=== PATIENT | female | born 1960 | race Caucasian/White ===

== ENCOUNTER 2016-12-02 10:25 | Emergency (ER) | payer OTHER ==
[~2016-12-02] VITALS: Ht 170.2 cm; Wt 83.9 kg
[2016-12-02 10:59] VITALS: BP 158/98
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
[2016-12-02] MEDS ORDERED: KLONOPIN0.5 M1 PO (12:28)
== END 2016-12-02 12:38 ==
LOC: ERH 10:25
DX: F43.10 Post-traumatic stress disorder, unspecified (principal); F32.9 Major depressive disorder, single episode, unspecified; F10.20 Alcohol dependence, uncomplicated

== ENCOUNTER 2017-01-23 14:49 | Emergency (ER) | payer OTHER ==
[~2017-01-23 14:49] MED LIST: KLONOPIN0.5 M1 PO
--- NOTE | 2017-01-23 14:58 | ED PSYCHIATRIC COMPLAINT ---
History of Present Illness General Chief Complaint: Psychiatric Related Complaint Stated Complaint: +SI\ Source: patient, old records Exam Limitations: poor historian Vital Signs & Intake/Output Vital Signs & Intake/Output Vital Signs Date Time Temp Pulse Resp B/P B/P Pulse O2 O2 Flow FiO2 Mean Ox Delivery Rate 01/23 1946 97.9 76 20 130/62 95 Room Air 01/23 1545 96.6 92 16 127/75 97 Room Air 01/23 1503 97 ED Intake and Output 01/24 0000 01/23 1200 Intake Total 0 Output Total Balance 0 Intake, Oral 0 Allergies Coded Allergies: No Known Drug Allergies (12/02/16) Reconcile Medications Clonazepam (Klonopin) 0.5 MG TABLET 1 TAB PO PRN PRN ANXIETY AND PTSD Triage Note: PT WENT TO SEE COUNCELOR AT TODAY AND TOLD THEM THAT SHE FELT SUICIDAL. PT BIBA FROM THERE, [facility] Triage Nurses Notes Reviewed? yes Onset: Gradual Duration: worse persistent since (weeks) Timing: recent history Severity: severe Severity Numbers: 10 Associated Symptoms: suicidal ideation HPI: Patient is a 56 out of female with history of depression and anxiety presenting to the emergency department with chief complaint of suicidal ideation has been going on for several weeks worse for the past couple days. Symptoms are currently severe. Denies any homicidal ideation. She reports that if she were to kill herself she would run out into oncoming traffic. Denies any drug use or alcohol use. Denies any nausea vomiting fevers or chills chest pain or shortness of breath. Nothing seems to make the symptoms better or worse. Denies any specific stressor but reports there is several things in her life that she stressed out about. (VERONIQUE RAMIREZ) Past History Medical History Any Pertinent Medical History? see below for history Psychiatric: alcohol dependence, anxiety, substance abuse Surgical History Surgical History: none Psychosocial History What is your primary language Georgian Family History Hx Contributory? No (VERONIQUE RAMIREZ) Review of Systems Review of Systems Constitutional: Reports: no symptoms. Comments Review of systems: See HPI, All other systems negative. Constitutional, no chills fever or weight loss HEENT: No visual changes no sore throat no congestion Cardiovascular: No chest pain ,palpitation , orthopnea or ankle swelling Skin, no jaundice no rashes Respiratory: No dyspnea cough sputum or hemoptysis GI: No nausea no vomiting : No dysuria No hematuria Muscle skeletal: no back pain, no neck pain, Neurologic: No numbness no confusion Psych: Positive stress, anxiety and depression Heme/endocrine: No bruising no bleeding no polyuria or polydipsia Immunology: No splenectomy or history of AIDS (VERONIQUE RAMIREZ) Physical Exam Physical Exam General Appearance: well developed/nourished, no apparent distress, alert, awake , comfortable Neurological/Psychiatric: oriented x 3 Comments: Well-developed well-nourished person in no acute distress HEENT: Pupils equally round and reactive to light and accommodation. Nose is atraumatic. Neck: Normal inspection Back: Nontender Cardiovascular: Regular rate and rhythms no murmurs rubs or gallops, normal JVP Respiratory: Chest nontender. No respiratory distress.breath sounds clear to auscultation bilaterally Extremity: No edema Neuro: Alert oriented x3, motor sensory normal Skin: No appreciable rash on exposed skin, skin is warm and dry. Psych: Flat affect SAD PERSONS SAD PERSONS Response Value Age <19 or >45 years? yes 1 Depression/Hopelessness? yes 2 Rational Thinking Loss? yes 2 Social Support? has support 0 Stated Future Intent? yes 2 Total 7 SAD PERSONS Done? yes (VERONIUQE RAMIREZ) Progress Differential Diagnosis: drug intoxication, drug withdrawal, hypothyroidism, major depressive disorder, bipolar, anxiety Plan of Care: Orders Procedure Date/time Status Regular Diet 01/24 L Active Continuous Observation Monitor 01/24 0820 Active Continuous Observation Monitor 01/23 1458 Active URINE DRUG SCREEN FOR ER ONLY 01/23 1458 Complete URINALYSIS 01/23 1458 Complete TSH REFLEX 01/23 1458 Complete ETHANOL 01/23 1458 Complete COMPREHENSIVE METABOLIC PANEL 01/23 1458 Complete CBC WITHOUT DIFFERENTIAL 01/23 1458 Complete ED CRISIS PSYCH CONSULT 01/23 1458 Active Laboratory Tests 01/23/17 1600: Urine Opiates Screen < 100.00, Methadone Screen < 40, Barbiturate Screen < 60, Ur Phencyclidine Scrn < 6.00, Amphetamines Screen < 100, U Benzodiazepines Scrn < 85, Urine Cocaine Screen < 50, Urine Cannabis Screen < 5.00, Urine Color YEL, Urine Clarity CLEAR, Urine pH 6.0, Ur Specific [place] <= 1.005, Urine Protein NEG, Urine Ketones NEG, Urine Nitrite NEG, Urine Bilirubin NEG, Urine Urobilinogen 0.2, Ur Leukocyte Esterase NEG, Ur Microscopic EXAM NOT REQUIRED, Urine Hemoglobin NEG, Urine Glucose NEG 01/23/17 1535: Anion Gap 13, Estimated GFR > 60, BUN/Creatinine Ratio 14.0, Glucose 88, Calcium 9.3, Total Bilirubin 1.0, AST 21, ALT 30, Alkaline Phosphatase 121, Total Protein 6.9, Albumin 4.2, Globulin 2.7, Albumin/Globulin Ratio 1.6, TSH &T3 & Free T4 Intrp 2.430, CBC w Diff NO MAN DIFF REQ, RBC 4.93, MCV 94.8, MCH 31.8 H , RDW 13.3, MPV 8.4, Gran % 55.5, Lymphocytes % 36.1, Monocytes % 5.5, Eosinophils % 2.0, Basophils % 0.9, Absolute Granulocytes 3.1, Absolute Lymphocytes 2.0, Absolute Monocytes 0.3, Absolute Eosinophils 0.1, Absolute Basophils 0.1, PUBS MCHC 33.5, Serum Alcohol < 10.0 Hand-Off Endorsed To: OLVIN LEROY MD Endorsed Time: 2356 Pending: other Comments: Patient will be a holdover, reevaluation in the morning. Signed out to Dr. Leroy pending reevaluation. (VERONIQUE RAMIREZ) Hand-Off Endorsed To: SARAHI ALICEA MD Endorsed Time: 07 Pending: other (OLVIN LEROY MD) Comments: Patient has been seen and evaluated by the newspaper library manager. Patient is stable for discharge at this time. (SARAHI ALICEA MD) Departure Departure Condition: Stable Clinical Impression Primary Impression: Depression Qualifiers: Depression Type: unspecified Qualified Code: F32.9 - Major depressive disorder, single episode, unspecified Referrals: STAS DOWNING,YARITZA GOULD (PCP/Family) Departure Forms: Customer Survey General Discharge Information (VERONIQUE RAMIREZ) PA/CLEANER AND TRIMMER Co-Sign Statement Statement: ED Attending supervision documentation- [] I saw and evaluated the patient. I have also reviewed all the pertinent lab results and diagnostic results. I agree with the findings and the plan of care as documented in the PA's/CLEANER AND TRIMMER's documentation. [X] I have reviewed the ED Record and agree with the PA's/CLEANER AND TRIMMER's documentation. [] Additions or exceptions (if any) to the PAs/CLEANER AND TRIMMER's note and plan are summarized below: [] (SHARON DON,OLVIN Ny) Departure Disposition: HOME OR SELF CARE Additional Instructions: FOLLOW UP PER RECOMMENDATIONS OF THE E BUSINESS CONSULTANT RETURN FOR ANY CONCERNS (DEANNE DON,SARAHI Shipman)
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
[2017-01-23 15:52] LABS: ABSOLUTE BASOPHIL COUNT 0.1 /CUMM (0.0-0.2); ABSOLUTE EOSINOPHIL COUNT 0.1 /CUMM (0.0-0.7); ABSOLUTE GRANULOCYTE CT 3.1 /CUMM (1.4-6.5); ABSOLUTE MONOCYTE COUNT 0.3 /CUMM (0.10-0.60); BASOPHIL % 0.9 % (0.0-2.0); GRANULOCYTE % 55.5 % (42.2-75.2); HEMATOCRIT 46.8 % (37-47); MEAN CORPUSCULAR HGB 31.8 PG (27.0-31.0); MEAN CORPUSCULAR HGB CONC 33.5 G/DL (33.0-37.0); MEAN CORPUSCULAR VOLUME 94.8 FL (81.0-99.0); MEAN PLATELET VOLUME 8.4 FL (7.4-10.4); PLATELET COUNT 216 /CUMM (130-400); RBC DISTRIBUTION WIDTH 13.3 % (11.5-14.5); RED BLOOD CELL CT 4.93 /CUMM (4.20-5.40); WHITE BLOOD CELL COUNT 5.5 /CUMM (4.8-10.8)
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
--- NOTE | 2017-01-23 19:58 | ED PSY CRISIS COLLATERAL NOTE ---
Collateral Note Collateral Note Family/Inform/Margo Contacts: Reza her son called back please keep him in the loop. He feels his Mother has given up hope, but she loves her children more than everything. He is a great emotional support to her, he is a resource and wants to be included in her disposition. [phone]
[2017-01-24 09:12] VITALS: BP 118/80
== END 2017-01-24 09:13 ==
LOC: ERH 14:49
PROVIDERS: Physician Assistant
DX: F32.9 Major depressive disorder, single episode, unspecified (principal); F10.20 Alcohol dependence, uncomplicated; F19.10 Other psychoactive substance abuse, uncomplicated
CPT/HCPCS: 80307; 81003; G0463; G0480